=== PATIENT | male | born 1980 | race Caucasian/White ===

== ENCOUNTER 2019-12-30 14:23 | Emergency (ER) | payer SELFPAY ==
[2019-12-30 14:30] VITALS: BP 125/75
--- NOTE | 2019-12-30 14:50 | ER Document Report ---
ED Medical Screen (RME) - General Chief Complaint: Back Pain Stated Complaint: BACK PAIN Time Seen by Provider: 12/30/19 14:42 Primary Care Provider: CJ VICTOR [Primary Care Provider] - Follow up as needed Mode of Arrival: Ambulatory Information source: Patient Notes: 39-year-old male presented to ED for complaint of bilateral flank pain. He states is been going on for about a week and a half. He states he goes all the way to the top of his back and elevated hips and pelvis area. He states it comes and goes down his legs. He states he gets a week. 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 He states it happened about a week and half ago and then it happened again this weekend. He states he does smoke a pack a day does not drink does not use any illicit drugs. 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 I have greeted and performed a rapid initial assessment of this patient. A comprehensive ED assessment and evaluation of the patient, analysis of test results and completion of medical decision making process will be conducted by an additional ED providers. - Related Data Allergies/Adverse Reactions: Penicillins Allergy (Unknown, Verified 12/30/19 14:47) Home Medications: denies Past Medical History - Social History Chew tobacco use (# tins/day): No Frequency of alcohol use: None Drug Abuse: Bath salts Physical Exam - Vital signs Vitals: Temp Pulse Resp BP Pulse Ox 98.5 F 66 18 125/75 98 12/30/19 14:29 12/30/19 14:29 12/30/19 14:29 12/30/19 14:29 12/30/19 14:29 Course - Vital Signs Vital signs: Temp Pulse Resp BP Pulse Ox 98.5 F 66 18 125/75 98 12/30/19 14:29 12/30/19 14:29 12/30/19 14:29 12/30/19 14:29 12/30/19 14:29 Doctor's Discharge - Discharge Referrals: CJ VICTOR [Primary Care Provider] - Follow up as needed
--- NOTE | 2019-12-30 15:14 | RADIOLOGY REPORT (SQ) ---
EXAM DESCRIPTION: CHEST 2 VIEWS IMAGES COMPLETED DATE/TIME: 12/30/2019 2:56 pm REASON FOR STUDY: Bilateral back pain COMPARISON: None. EXAM PARAMETERS: NUMBER OF VIEWS: two views TECHNIQUE: Digital Frontal and Lateral radiographic views of the chest acquired. RADIATION DOSE: NA LIMITATIONS: none FINDINGS: LUNGS AND PLEURA: No opacities, masses or pneumothorax. No pleural effusion. MEDIASTINUM AND HILAR STRUCTURES: No masses or contour abnormalities. HEART AND VASCULAR STRUCTURES: Heart normal size. No evidence for failure. BONES: No acute findings. HARDWARE: None in the chest. OTHER: No other significant finding. IMPRESSION: NO ACUTE RADIOGRAPHIC FINDING IN THE CHEST. TECHNICAL DOCUMENTATION: JOB ID: [id number] 2010 [employer]- All Rights Reserved Reading location - IP/workstation name: [email or web address]
[2019-12-30 15:49] LABS: ABSOLUTE EOSINOPHILS # (AUTO) 0.4 10^3/uL (0.0-0.6); ABSOLUTE LYMPHOCYTES (AUTO) 1.6 10^3/uL (0.5-4.7); ABSOLUTE MONOCYTES (AUTO) 0.4 10^3/uL (0.1-1.4); ABSOLUTE NEUT (AUTO) 2.6 10^3/uL (1.7-8.2); BASOPHILS % (AUTO) 0.9 % (0-2); EOSINOPHILS % (AUTO) 7.6 % (0-6); HEMATOCRIT 38.1 % (37.9-51.0); HEMOGLOBIN 12.9 g/dL (13.5-17.0); MEAN CORPUSCULAR HGB CONC 33.8 g/dL (32.0-36.0); MEAN CORPUSCULAR VOLUME 92 fl (80-97); MONOCYTES % (AUTO) 8.3 % (3-13); PLATELET COUNT 148 10^3/uL (150-450); RED BLOOD COUNT 4.16 10^6/uL (4.35-5.55); SEGMENTED NEUTROPHILS % (AUTO) 51.2 % (42-78); TOTAL CELLS COUNTED % (AUTO) 100 %; WHITE BLOOD COUNT 5.1 10^3/uL (4.0-10.5)
[2019-12-30 16:08] LABS: ALBUMIN 3.8 g/dL (3.5-5.0); ALKALINE PHOSPHATASE 71 U/L (38-126); ASPARTATE AMINO TRANSFERASE 20 U/L (17-59); BILIRUBIN,TOTAL 0.2 mg/dL (0.2-1.3); BLOOD UREA NITROGEN 15 mg/dL (7-20); CREATINE KINASE 86 U/L (55-170); GLUCOSE 94 mg/dL (75-110); POTASSIUM 4.4 mmol/L (3.6-5.0)
[2019-12-30 16:13] LABS: CARBON DIOXIDE 29 mmol/L (22-30); CHLORIDE 108 mmol/L (98-107)
[2019-12-30 16:14] LABS: ANION GAP 1 (5-19)
[2019-12-30 16:19] LABS: APPEARANCE,URINE CLOUDY; BILIRUBIN,URINE NEGATIVE (NEGATIVE); COLOR,URINE YELLOW; GLUCOSE, URINE NEGATIVE (NEGATIVE); KETONES,URINE NEGATIVE (NEGATIVE); LEUKOCYTE ESTERASE,URINE NEGATIVE (NEGATIVE); NITRITE,URINE NEGATIVE (NEGATIVE); PROTEIN,URINE NEGATIVE (NEGATIVE); URINE SPECIFIC GRAVITY 1.018
[2019-12-30 16:29] LABS: URINE AMPHETAMINES SCREEN NEGATIVE; URINE BARBITURATES SCREEN NEGATIVE; URINE BENZODIAZEPINES SCREEN NEGATIVE; URINE COCAINE SCREEN NEGATIVE; URINE METHADONE SCREEN NEGATIVE; URINE PHENCYCLIDINE SCREEN NEGATIVE
[2019-12-30 16:30] LABS: URINE MARIJUANA (THC) SCREEN UNCONFIRMED POSITIVE
--- NOTE | 2019-12-30 16:48 | ER Document Report ---
ED General - General Chief Complaint: Back Pain Stated Complaint: BACK PAIN Time Seen by Provider: 12/30/19 14:42 Primary Care Provider: CJ VICTOR [NO LOCAL MD] - Follow up as needed Mode of Arrival: Ambulatory Information source: Patient Notes: 39-year-old male presents emergency department with complaints of fatigue and bilateral low back pain. Patient denies any specific injury. He reports symptoms ongoing for the last few days. 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 He states he has been keeping up with his intake. He denies any known exposure 20 COVID-19 positive persons. He denies any nausea, vomiting, diarrhea, fever or chills. He is otherwise healthy, all immunizations up-to-date, does not take any prescription medications. - Related Data Allergies/Adverse Reactions: Penicillins Allergy (Unknown, Verified 12/30/19 14:47) Home Medications: denies Past Medical History - General Information source: Patient - Social History Smoking Status: Current Every Day Smoker Chew tobacco use (# tins/day): No Frequency of alcohol use: None Drug Abuse: Bath salts Family History: Reviewed & Not Pertinent Patient has homicidal ideation: No - Medical History Medical History: Negative Surgical Hx: Negative - Immunizations Immunizations up to date: Yes Review of Systems - Review of Systems Constitutional: Malaise EENT: No symptoms reported Cardiovascular: No symptoms reported Respiratory: No symptoms reported Gastrointestinal: No symptoms reported Genitourinary: No symptoms reported Male Genitourinary: No symptoms reported Musculoskeletal: See HPI Skin: No symptoms reported Hematologic/Lymphatic: No symptoms reported Neurological/Psychological: No symptoms reported Physical Exam - Vital signs Vitals: Temp Pulse Resp BP Pulse Ox 98.5 F 66 18 125/75 98 12/30/19 14:29 12/30/19 14:29 12/30/19 14:29 12/30/19 14:29 12/30/19 14:29 - Notes Notes: PHYSICAL EXAMINATION: GENERAL: Well-appearing, well-nourished and in no acute distress. HEAD: Atraumatic, normocephalic. EYES: Pupils equal round and reactive to light, extraocular movements intact, sclera anicteric, conjunctiva are normal. ENT: Nares patent, oropharynx clear without exudates. Moist mucous membranes. NECK: Normal range of motion, supple without lymphadenopathy LUNGS: Breath sounds clear to auscultation bilaterally and equal. No wheezes rales or rhonchi. HEART: Regular rate and rhythm without murmurs ABDOMEN: Soft, nontender, nondistended abdomen. No guarding, no rebound. No masses appreciated. Musculoskeletal: Normal range of motion, no pitting or edema. No cyanosis. Tenderness to palpation in the bilateral lumbar paraspinous region, no vertebral tenderness, step-off or deformity. NEUROLOGICAL: Cranial nerves grossly intact. Normal speech, normal gait. Normal sensory, motor exams PSYCH: Normal mood, normal affect. SKIN: Warm, Dry, normal turgor, no rashes or lesions noted. Course - Re-evaluation Re-evalutation: Patient appears well, nontoxic, vital signs reviewed and are within normal limits. Patient is otherwise healthy. He has had normal labs drawn here today. He has had a negative mono test. He has had a negative lumbar CT. I do not feel there is anything life-threatening or emergent going on today. He will fol low-up with the [facility]. He has been prescribed Toradol to help with his symptoms. Patient denies any questions, work note provided. - Vital Signs Vital signs: Temp Pulse Resp BP Pulse Ox 98.5 F 66 18 125/75 98 12/30/19 14:29 12/30/19 14:29 12/30/19 14:29 12/30/19 14:29 12/30/19 14:29 - Laboratory Result Diagrams: 12/30/19 15:15 12/30/19 15:15 Laboratory results interpreted by me: 12/30/19 12/30/19 12/30/19 15:15 15:15 15:47 RBC 4.16 L Hgb 12.9 L Plt Count 148 L Eos % (Auto) 7.6 H Chloride 108 H Anion Gap 1 L Total Protein 6.0 L Urine Urobilinogen 2.0 H Discharge - Discharge Clinical Impression: Back pain Qualifiers: Back pain location: low back pain Chronicity: acute Back pain laterality: bilateral Sciatica presence: unspecified whether sciatica present Qualified Code(s): M54.5 - Low back pain Fatigue Qualifiers: Fatigue type: unspecified Qualified Code(s): R53.83 - Other fatigue Condition: Stable Disposition: HOME, SELF-CARE Additional Instructions: Your work-up today was reassuring. All of your blood work, urine and CT scans did not find any acute cause for your fatigue and back pain. I suspect you have some type of viral process going on. Please increase your fluid intake. Take Tylenol for the back pain. Use the Toradol as prescribed. Call the [facility] to schedule a follow-up appointment and to establish primary care. Return to the emergency department with any new or worsening symptoms. Prescriptions: Ketorolac Tromethamine [Toradol 10 mg Tablet] 10 mg PO Q6HP PRN #24 tablet PRN Reason: Forms: Return to Work Referrals: LOCALMD,NO [NO LOCAL MD] - Follow up as needed
--- NOTE | 2019-12-30 17:46 | RADIOLOGY REPORT (SQ) ---
EXAM DESCRIPTION: CT THORACIC SPINE WITHOUT IMAGES COMPLETED DATE/TIME: 12/30/2019 5:06 pm REASON FOR STUDY: back pain COMPARISON: None. TECHNIQUE: Axial images acquired through the thoracic spine without intravenous contrast. Images re viewed with lung, soft tissue and bone windows. Reconstructed coronal and sagittal MPR images review ed. Images stored on PACS. All CT scanners at this facility use dose modulation, iterative reconstruction, and/or weight based d osing when appropriate to reduce radiation dose to as low as reasonably achievable (ALARA). [facility]: Dose Right [facility]: CareDose [facility]: Dose Right [facility]: Teradose 4D [facility]: [employer] RADIATION DOSE: CT Rad equipment meets quality standard of care and radiation dose reduction techniq ues were employed. CTDIvol: 17.6 mGy. DLP: 654 mGy-cm. mGy. LIMITATIONS: None. FINDINGS: VISUALIZED LUNGS: Centrilobular emphysematous changes are present, which is an unexpected finding in a 39-year-old patient. SOFT TISSUES: No soft tissue swelling. No masses. VERTEBRAL BODIES: No fractures. No dislocation. No acute findings. DISCS: No significant disc space narrowing. ALIGNMENT: Normal. TRANSVERSE PROCESSES, POSTERIOR ELEMENTS: No fractures. No dislocation. No acute findings. HARDWARE: None in the spine. VISUALIZED RIBS: No fractures. OTHER: No other significant finding. IMPRESSION: No evidence of acute osseous injury or significant degenerative change. Incidental find ing of the appearance of centrilobular emphysematous changes of the lungs is an unexpected finding in a 39-year-old patient. TECHNICAL DOCUMENTATION: JOB ID: [id number] Quality ID # [id number]: Final reports with documentation of one or more dose reduction techniques (e.g., Au tomated exposure control, adjustment of the mA and/or kV according to patient size, use of iterative reconstruction technique) 2010 [employer]- All Rights Reserved Reading location - IP/workstation name: [email or web address]
--- NOTE | 2019-12-30 17:48 | RADIOLOGY REPORT (SQ) ---
EXAM DESCRIPTION: CT LUMBAR SPINE WITHOUT IMAGES COMPLETED DATE/TIME: 12/30/2019 5:06 pm REASON FOR STUDY: low back pain COMPARISON: None. TECHNIQUE: Axial images acquired through the lumbar spine without intravenous contrast. Images revi ewed with lung, soft tissue and bone windows. Reconstructed coronal and sagittal MPR images reviewed . All images stored on PACS. All CT scanners at this facility use dose modulation, iterative reconstruction, and/or weight based d osing when appropriate to reduce radiation dose to as low as reasonably achievable (ALARA). [facility]: Dose Right [facility]: CareDose [facility]: Dose Right [facility]: Teradose 4D [facility]: [employer] RADIATION DOSE: mGy. LIMITATIONS: None. FINDINGS: SEGMENTATION: Normal. No transitional anatomy. ALIGNMENT: Normal. VERTEBRAL BODIES: No fractures. No dislocation. No acute findings. DISCS: No significant protrusions. Study limited by lack of intrathecal contrast. PEDICLES, TRANSVERSE PROCESSES: No fractures. No dislocation. No acute findings. FACETS, POSTERIOR ELEMENTS: No fractures. No dislocation. No spinal stenosis. HARDWARE: None in the spine. VISUALIZED RIBS: No fractures. SOFT TISSUES: No significant or acute finding in adjacent soft tissues. OTHER: No other significant finding. IMPRESSION: No evidence of acute osseous injury or significant degenerative change. TECHNICAL DOCUMENTATION: JOB ID: [id number] Quality ID # [id number]: Final reports with documentation of one or more dose reduction techniques (e.g., Au tomated exposure control, adjustment of the mA and/or kV according to patient size, use of iterative reconstruction technique) 2010 [employer]- All Rights Reserved Reading location - IP/workstation name: [email or web address]
[2019-12-30] MEDS ORDERED: KETOROLAC TROMETHAMINE 60 MG/2 ML SDV ONE (18:12)
[2019-12-30] MEDS ORDERED: KETOROLAC TROMETHAMINE 60 MG/2 ML SDV IM ONE (18:12)
== END 2019-12-30 18:32 | disposition home or self-care (01) ==
LOC: ER 14:23
DX: M54.5 Low back pain (principal); R53.83 Other fatigue; R53.81 Other malaise; F19.10 Other psychoactive substance abuse, uncomplicated; F17.200 Nicotine dependence, unspecified, uncomplicated
CPT/HCPCS: 99285; 96372; 36415; 87086; 82550; 83690; 85025; 86308; 80053; 81001; 84484; 80307; 71046; 72128; 72131; J1885